=== PATIENT | female | born 1940 ===

== ENCOUNTER 2021-02-10 01:33 | Inpatient (IN) | payer MEDICARE, MEDICAID, SELFPAY ==
[2021-02-10] VITALS (14 sets, daily range): BP systolic 94–139; BP diastolic 48–78; PULSE 75–92; RESP 16–20; TEMP 36–37.2; O2SAT 94–99
[2021-02-10] MEDS: Lactated Ringers 1,000 ML 150 ML IV ×2 (02:16→08:49)
[2021-02-10 03:05] LABS: Source Nasal/Nares
--- NOTE | 2021-02-10 04:15 | NUR.NOTE ---
Nursing Note: At 0035 hrs., Patient arrived in Rm 225, via stretcher by [facility] ambulance staff for direct admit. She is fully awake and pale looking.Presenting problem is heavy vaginal bleeding. She is nauseated , related to motion sickness, Patient received 4 doses of Zofran while on their way. Seen and examined by Produce Department Supervisor MD, internal exam performed and vulva is swollen and with dark blood clots noted. Both grains with large size of bruise. Both upper thigh are edematous +3 and bilateral feet plus 2. Patient verbalized of difficulty of moving legs voluntarily and painful.Admission care rendered. Oriented to call lights system. Bed alarm is on.
--- NOTE | 2021-02-10 07:42 | W.PM.HP.N ---
Date of service: 02/10/21 Time of Service: 07:42 Assessment and Plan Assessment and plan (1) Postmenopausal bleeding: Status: Acute Assessment and plan: Need more thorough exam to better determine the cause of her bleeding. Will consider exam under anesthesia after hospitalist evaluation for stability of other comorbidities. Repeat CBC. History of Present Illness Pt states that she has dealt with hemorrhoids for a while and when she sits on the toilet they get bigger. 2 nights ago she said there were 2 of them that were really big and almost fit in the palm of her hand. She also noticed a little bit of bleeding. Last night she was sitting on the toilet straining to have a BM and she suddenly had a big gush of blood and some clots so EMS was called and she was brought to [facility]. Due to having no executive coordinator there and [facility] and [facility] unable to accept the pt, she was sent here for executive coordinator evaluation. She denies any bleeding prior to the past few days. She is not sexually active. She has not seen a executive coordinator in many years but denies a recent h/o any concerns. She reports having had precancerous cervical cells in 1980 that were treated with normal paps since. She denies any other executive coordinator issues or concerns. Review of Systems Constitutional Constitutional: Denies chills, Denies fever(s) and Reports poor appetite ENT Ears, Nose, Mouth, and Throat: Reports hearing loss Cardiovascular Cardiovascular: Reports dyspnea on exertion Respiratory Respiratory: Reports dyspnea on exertion Gastrointestinal Gastrointestinal: Denies hematochezia, Reports constipation and Reports nausea (Only due to ambulance ride to hospital.) Genitourinary Genitourinary: Reports as per HPI, Denies dysuria and Reports urinary incontinence (wears a depends and uses desitin) Musculoskeletal Musculoskeletal: Reports arthralgias (due to arthritis) [facility] Medical History (Updated 02/10/21 @ 14:43 by Maria Medrano MD) Ambulatory dysfunction Degenerative joint disease involving multiple joints (~08/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) Disorder of uterine cervix (~08/15/17) Hyperlipidemia (~08/15/17) Hypertension (~08/15/17) Non-insulin dependent type 2 diabetes mellitus Obesity (BMI 30-39.9) Positive cardiac stress test Precancerous changes of the cervix UTI (urinary tract infection) (~08/15/17) Surgical History (Updated 02/10/21 @ 14:22 by Maria Medrano MD) H/O cone biopsy of cervix History of cholecystectomy Hx of colonoscopy Tubal ligation status Family History (Updated 02/10/21 @ 14:23 by Maria Medrano MD) Father Heart disease Hypertension Mother Hypertension Maternal Aunt Cancer cervical cancer Social History (Updated 02/10/21 @ 14:25 by Maria Medrano MD) Smoking/Tobacco Use Status: Former Tobacco Use Smoking risk assessment performed?: Yes Alcohol Intake: former Drug use: Never Household members: children Communication Needs: Hard of Hearing Additional Social history: wheelchair bound. Lives with son who is about to move to [place]. The patient was awaiting placement at [facility], but it has closed to admissions History History 1 Para 1 Hx # Term Pregnancies 1 Multiple births Hx # Pregnancies 0 Ectopic pregnancies AB induced Hx Number of Living Children 0 AB spontaneous Past Pregnancies Del. Date GA/Weeks # Outcome Route Wgt Sex Labor Lgth Anesthesia Location Prov Complic Unknown vaginal Male Stillbirth due to toxemia - 1969 Meds Allergies and Home Medications Allergies Allergy/AdvReac Type Severity Reaction Status Date / Time codeine Allergy Dizziness/L Unverified 02/10/21 03:22 ighthead meperidine [From Demerol] Allergy Headache Unverified 02/10/21 03:22 morphine Allergy Dizziness/L Unverified 02/10/21 03:22 ighthead naproxen [From Aleve] Allergy Swelling/Ed Unverified 02/10/21 03:22 juma tetracycline Allergy Unverified 02/10/21 03:22 Home Medications Medication Instructions Recorded Confirmed Type acetaminophen 1,000 mg PO PRN PRN 02/10/21 02/10/21 History aspirin [Ecotrin Low Strength] 81 mg PO DAILY 02/10/21 02/10/21 History atenolol 50 mg DAILY 02/10/21 02/10/21 History calcium citrate-vitamin D3 200 tab DAILY 02/10/21 02/10/21 History [Calcium Citrate + D] cholecalciferol (vitamin D3) 25 mcg PO DAILY 02/10/21 02/10/21 History [Vitamin D3] cranberry extract 1 mg PO DAILY 02/10/21 02/10/21 History diclofenac sodium TOPICAL 02/10/21 History glipizide 5 mg PO BID 02/10/21 02/10/21 History losartan-hydrochlorothiazide 1 tab DAILY 02/10/21 02/10/21 History [Hyzaar] lovastatin 1 mg DAILY 02/10/21 02/10/21 History magnesium chloride [Slow-Mag] 117 mg PO BID 02/10/21 02/10/21 History metformin 1,000 mg BID 02/10/21 02/10/21 History nystatin [Nystop] TOPICAL 02/10/21 History Exam Const General: cooperative and no acute distress HENMT Head: normocephalic and atraumatic Resp Effort & Inspection: normal respiratory effort and able to speak in complete sentences Neuro General: patient awake (though sleepy @1am) Psych Appearance: grossly normal Mental Status: mental status grossly normal Affect: normal affect Attitude: cooperative Thought Process: normal Thought Content: normal Results Labs Result diagrams: 02/10/21 14:10 02/10/21 09:20 Labs: Laboratory Results - last 24 hr 02/10/21 02:40 COVID-19 Source Nasal/Nares Last Vital Signs Temp 98.1 F 02/10/21 07:34 Pulse 88 02/10/21 07:34 Resp 18 02/10/21 07:34 BP 133/70 02/10/21 07:34 Pulse Ox 99 02/10/21 07:34
--- NOTE | 2021-02-10 09:00 | RT.EKG_ITS ---
APPROVED REPORT Exam: Resting ECG Reason for Exam: preop clearance Patient Location: I HR:91 bpm ECG Measurements Heart Rate 91 AXIS OK 158 P 34 QRSd 84 QRS -26 QT 341 T 28 QTc 420 Conclusion Sinus rhythm...normal P axis, V-rate 60- 99 Probable anterior infarct, age indeterminate...Q >35mS, T neg, V2-V5
[2021-02-10 09:32] LABS: Abs Immature Grans 0.22 10^3/uL (0.0-0.06); Absolute Eosinophil Count 0.22 10^3/uL (0.0-0.7); Absolute Neutrophil Count 13.69 10^3/uL (1.2-6.7); Basophils % 0.4; HGB 7.2 g/dL (11.2-15.7); Lymphocytes % 26.1; MCH 30.9 pg (27.0-33.0); MCHC 32.7 % (32.0-36.0); MCV 94.4 fL (80-95); Monocytes % 8.1; Neutrophils % 63.4; Nucleated RBC 0 %; Platelet Count 285 10^3/uL (130-400); RBC 2.33 10^6/uL (3.93-5.22); RDW 13.1 % (11.7-14.6); RDW-SD 43.9 fL
[2021-02-10 09:46] LABS: Hemoglobin A1C 7.8 % (<5.7)
[2021-02-10 10:01] LABS: Absolute Basophil Count 0.09 10^3/uL (0.0-0.2); Absolute Lymphocyte Count 5.64 10^3/uL (1.2-3.4); Absolute Monocyte Count 1.75 10^3/uL (0.1-0.8)
[2021-02-10 10:02] LABS: Diff Comment Diff Reviewed; Polychromasia Present
--- NOTE | 2021-02-10 10:05 | PAPFT_PTH ---
PATIENT: Lakia Rosales LOC: [id number]#:[id number] AGE/SX: 80/F ROOM: RE02/11/[address]: Yu Gama MD : 1940 BED: A DIS: 02/12/2021 SPEC #: [id number] RECD: 02/11/21 12:57 STATUS: TANA REQ #: [id number] EZ: 02/10/21 10:[address]: Yu Gama DEPT: [facility] Cytology RECD BY: Lakia Ruiz ENTERED: 02/11/21 13:00 SP TYPE: PAPFT OTHR DR: Sil Kinney Unknown,Unknown Tissues: 1 - CX/ENDOCX FOR PAP SMEARS Procedures: PAP THIN PREP/UVM Screening Comments: [id number]
--- NOTE | 2021-02-10 10:15 | RT.EKG_ITS ---
APPROVED REPORT Exam: Resting ECG Reason for Exam: assure lead placement Patient Location: I HR:88 bpm ECG Measurements Heart Rate 88 AXIS OK 177 P 28 QRSd 79 QRS -28 QT 196 T 22 QTc 238 Conclusion Sinus rhythm...normal P axis, V-rate 60- 99 Low voltage, precordial leads...precordial leads <1.0mV Consider anterior infarct...Q >30mS in V2-V5
[2021-02-10 10:18] LABS: Iron 46 ug/dL (50-170); Total Iron Binding Capacity 308 ug/dL (250-450); Transferrin Sat 15 % (15-50)
[2021-02-10 10:19] LABS: ALT 27 U/L (14-59); AST 20 U/L (15-37); Albumin 3.1 g/dL (3.4-5.0); Alkaline Phosphatase 40 U/L (46-116); Anion Gap 9.4 mmol/L (3-11); BUN 22 mg/dL (7-18); Bilirubin, Total 0.3 mg/dL (0.2-1.0); CO2 23.6 mmol/L (21.0-32.0); CREATININE 1.2 mg/dL (0.55-1.02); Calcium 8.5 mg/dL (8.5-10.1); Chloride 104 mmol/L (98-107); Estimated GFR 43.12 (mL/min/1.73m2); Ferritin 62 ng/mL (8-252); Glucose 196 mg/dL (74-106); Potassium 3.4 mmol/L (3.5-5.1); Sodium 137 mmol/L (136-145); Total Protein 6.5 g/dL (6.4-8.2)
[2021-02-10 10:28] LABS: Bilirubin, Direct 0.1 mg/dL (0.0-0.2)
[2021-02-10 10:28] LABS: COVID-19 PCR Negative (Negative)
[2021-02-10 10:33] LABS: Folate 13.5 ng/mL (8.6-20.0); Vitamin B12 806 pg/mL (193-986)
[2021-02-10 10:34] LABS: Troponin I < 0.05 ng/mL (<0.06)
--- NOTE | 2021-02-10 10:40 | MCONE_ITS ---
Date of service: 02/10/21 Time of Service: 10:40 Assessment and Plan Assessment and plan (1) Postmenopausal bleeding: Status: Acute Assessment and plan: Agree that the patient would benefit from an exam under anesthesia. However she does have a number of red flags in her history such as h/o myocarditis, positive stress test, Dyspnea on exertion, possible sleep apnea. Given this picture and the fact that the patient is not currently bleeding, I would obtain an echocardiogram. Until then, I am unable to clear the patient for this procedure. (2) Leucocytosis: Status: Acute Assessment and plan: DDx: pelvic process, ?UTI or due to vomiting. Procalcitonin is 0.01, which is not negative. We are awaiting a UA - AUTO MECHANICS TEACHER is planning on trying a straight cath; nursing has not been able to do so. No abx until UA is collected. (3) Anemia due to acute blood loss: Status: Acute Assessment and plan: Tren H/H. Latest Hgb is 6.5 - recommend transfusion with target H/H of 11/28. I am deferring blood transfusion to the primary team, which has been communicated. (4) ESCALANTE (dyspnea on exertion): Status: Acute Assessment and plan: Obtain echo. (5) Non-insulin dependent type 2 diabetes mellitus: Status: Chronic Assessment and plan: Hold oral agents. Provide SSI (6) Hypertension: Status: Chronic Assessment and plan: Continue BB. hold losartan/HCTZ given IV contrast administration (7) Ambulatory dysfunction: Status: Chronic Assessment and plan: Would benefit from PT consult on this admission. History of Present Illness History of Present Illness Chief Complaint: Vaginal bleeding, consult for medical management and preop clearance Narrative: Ms Rosales is an 80 year old female who is a patient on Dr Gama's service (AUTO MECHANICS TEACHER) for vaginal bleeding x 2 days, having initially presented to the [facility] ED and transferred to our facility for further care. Her PMHx includes viral myocarditis (diagnosed in the ), what sounds like a positive cardiac stress test at that time, NIDDM2, hypertension, hyperlipidemia, and osteoarthritis. Of note, her hemoglobin there was 8.5 and her white count was 16. No imaging appears to have been done at [facility]. There is a plan to do an exam under anesthesia today by AUTO MECHANICS TEACHER. Hospitalist consult was requested for help with management of her other medical issues as well as for preop clearance. Today, her WBC is 21.6 and her Hgb is 7.2. The patient states that she has noticed two bumps in the flesh between the vagina and the anus, hanging down for the last several weeks, which have gotten increasingly more sore over the last week. All of inside my vagina was sore. She noticed bleeding when she got up to transfer from the wheelchair to the commode two days ago - she thinks, but is not sure if it started before urination. She initially thought it was hemorrhoids, which she does have a history of. This recurred again the following day and this time she thought it was coming from the vagina. The patient has had difficulty tolerating a pelvic or even external vaginal exam due to pain in her bilateral hips (from her osteoarthritis). Of note, the patient states she once had a cone biopsy of her cervix which was positive for precancerous cells, but has had negative pap smears since. She states she has had several negative colonoscopies. On review of symptoms, the patient states that she gets very short of breath on minimal exertion - just transferring from wheelchair to commode (she is wheelchair bound due to her osteoarthritis for which she would not consider either hip or knee replacements). She does not remember ever getting an echocardiogram and has not gotten a cardiac cath. She has not been in the care of a dust box worker since the . She also thinks she has obstructive sleep apnea, but has not been tested. She denies fevers, chest pain, PND/orthopnea, but has been sleeping in a recliner due to her pain in the bones. Review of Systems Narrative: Additionally, all n/v that the patient has experienced is due to motion sickness, she states. The ambulance ride to the ED as well as her trip downstairs for the CT made her nauseated. 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 (~08/15/17) Hyperlipidemia (~08/15/17) Hypertension (~08/15/17) Non-insulin dependent type 2 diabetes mellitus Obesity (BMI 30-39.9) Positive cardiac stress test Precancerous changes of the cervix UTI (urinary tract infection) (~08/15/17) Surgical History (Updated 02/10/21 @ 14:22 by Maria Medrano MD) H/O cone biopsy of cervix History of cholecystectomy Hx of colonoscopy Tubal ligation status Family History (Updated 02/10/21 @ 14:23 by Maria Medrano MD) Father Heart disease Hypertension Mother Hypertension Maternal Aunt Cancer cervical cancer Social History (Updated 02/10/21 @ 14:25 by Maria Medrano MD) Smoking/Tobacco Use Status: Former Tobacco Use Smoking risk assessment performed?: Yes Alcohol Intake: former Drug use: Never Household members: children Communication Needs: Hard of Hearing Additional Social history: wheelchair bound. Lives with son who is about to move to [place]. The patient was awaiting placement at [facility], but it has closed to admissions History History 1 Para 1 Hx # Term Pregnancies 1 Multiple births Hx # Pregnancies 0 Ectopic pregnancies AB induced Hx Number of Living Children 0 AB spontaneous Past Pregnancies Del. Date GA/Weeks # Outcome Route Wgt Sex Labor Lgth Anesthes ia Location Prov Complic Unknown vaginal Male Stillbirth due to toxemia - 1968 Exam Narrative Exam Narrative: General: Pleasant elderly female who does not appear to be feeling well, pale, A&Ox3, able to provide history Neurological: A&Ox3, mildly hard of hearing, no focal deficits Psychiatric: Appropriate speech pattern/content Skin: external swelling of vulva without obvious erythema. No lesions on B feet. Nursing did see ecchymosis on the sacral area which I was unable to see due to limitations of positioning (pain) during the physical exam HEENT: Atraumatic, normocephalic, EOMI, dry MM, clear oropharynx, no submandibu lar or cervical lypmhadenopathy, no goiter or JVD Cardiovascular: RRR, mildly tachycardic (90s), no m/r/g Lungs: CTAB Gastrointestinal: soft, nontender, nondistended Genitourinary: edemtaous vulva without any obvious erythema/lesions on very limited external exam. Extremities: no edema BLE's, trace pedal pulses B, no lesions Results Last Vital Signs Temp 36.7 C 02/10/21 07:34 Pulse 88 02/10/21 07:34 Resp 18 02/10/21 07:34 BP 133/70 02/10/21 07:34 Pulse Ox 99 02/10/21 07:34 Labs Result diagrams: 02/10/21 09:20 02/10/21 09:20 Labs: Laboratory Results - last 24 hr 02/10/21 02/10/21 02/10/21 02:40 09:20 09:20 WBC 21.60 H RBC 2.33 L Hgb 7.2 L Hct 22.0 L MCV 94.4 MCH 30.9 MCHC 32.7 RDW 13.1 Plt Count 285 MPV 10.0 Immature Gran % 1.0 Neutrophils % 63.4 Lymphocytes % 26.1 Monocytes % 8.1 Eosinophils % 1.0 Basophils % 0.4 Nucleated RBC % 0 Absolute Neutrophils 13.69 H Absolute Lymphocytes 5.64 H Absolute Monocytes 1.75 H Absolute Eosinophils 0.22 Absolute Basophils 0.09 RBC Morphology See Below Polychromasia Present Sodium 137 Potassium 3.4 L Chloride 104 Carbon Dioxide 23.6 Anion Gap 9.4 BUN 22 H Creatinine 1.2 H Estimated GFR/1.73 m2 43.12 Glucose 196 H Hemoglobin A1c Calcium 8.5 Iron TIBC Transferrin % Sat Ferritin 62 Total Bilirubin 0.3 Conjugated Bilirubin 0.1 AST 20 ALT 27 Alkaline Phosphatase 40 L Troponin I Total Protein 6.5 Albumin 3.1 L Vitamin B12 Folate COVID-19 Source Nasal/Nares SARS-CoV-2 (PCR) Negative 02/10/21 02/10/21 02/10/21 09:20 09:20 09:20 WBC RBC Hgb Hct MCV MCH MCHC RDW Plt Count MPV Immature Gran % Neutrophils % Lymphocytes % Monocytes % Eosinophils % Basophils % Nucleated RBC % Absolute Neutrophils Absolute Lymphocytes Absolute Monocytes Absolute Eosinophils Absolute Basophils RBC Morphology Polychromasia Sodium Potassium Chloride Carbon Dioxide Anion Gap BUN Creatinine Estimated GFR/1.73 m2 Glucose Hemoglobin A1c 7.8 H Calcium Iron 46 L TIBC 308 Transferrin % Sat 15 Ferritin Total Bilirubin Conjugated Bilirubin AST ALT Alkaline Phosphatase Troponin I < 0.05 Total Protein Albumin Vitamin B12 806 Folate 13.5 COVID-19 Source SARS-CoV-2 (PCR) Imaging Additional studies: CXR: No acute pulmonary findings. CT abdomen/pelvis: 1. The uterus and other reproductive organs appear grossly unremarkable. If there is continued concern ultrasound should be obtained. 2. No acute abdominal or pelvic process. EKG: HR 88, NSR, no acute ischemia, ?old anterior infarct
[2021-02-10 10:53] LABS: Magnesium 1.9 mg/dL (1.8-2.4); NT-proBNP 160 pg/mL (<300)
--- NOTE | 2021-02-10 10:55 | DI.RAD_ITS ---
Exam(s) XR CHEST 2V PA LATERAL EXAM: XR CHEST 2V PA LATERAL CLINICAL HISTORY: preop clearance TECHNIQUE: 2D digital imaging was performed of the chest. Two images were obtained. PA and lateral views were obtained. COMPARISON: No exams were available for comparison FINDINGS: MEDIASTINUM: Normal. HEART: Normal. PULMONARY VASCULATURE: Normal. LUNGS: Clear. PLEURAL SPACE: No pleural effusion or pneumothorax. BONE:Within normal limits for the patient's age. OTHER FINDINGS:Normal. IMPRESSION: No acute pulmonary findings. DATA REPOSITORY: RADIATION DOSE DELIVERED:
[2021-02-10] MEDS: Normal Saline Flush 10 ML SYR IVP ×3 (11:09→23:02)
[2021-02-10] MEDS: Ondansetron 4 MG/2 ML VIAL IVP (11:09)
[2021-02-10 11:16] LABS: Procalcitonin 0.1 ng/mL
[2021-02-10] MEDS: Pantoprazole 40 MG VIAL IVP (11:37)
--- NOTE | 2021-02-10 11:43 | DI.VRAD_ITS ---
PROCEDURE INFORMATION: Exam: XR Chest Exam date and time: 02/10/2021 10:52 AM Age: 80 years old Clinical indication: Other: Pre-op clearing TECHNIQUE: Imaging protocol: XR of the chest. Views: 2 views. COMPARISON: No relevant prior studies available. FINDINGS: Scan quality: Exam is technically satisfactory. Lungs: Lungs are clear with no infiltrate or nodule. Pleural spaces: Unremarkable. No pleural effusion. No pneumothorax. Heart/Mediastinum: Cardiomediastinal silhouette is normal. Vasculature: Pulmonary vessels are non-engorged. Bones/joints: Unremarkable. IMPRESSION: No active cardiopulmonary disease. Dictated and Authenticated by: Harry Harp MD. Ordering:GENTRY Sifuentes MD
[2021-02-10] MEDS: Omnipaque 350 MG/ML 100 ML BTL IV (11:58)
[2021-02-10] MEDS: Normal Saline - Diluent 50 ML VIAL IV (11:59)
--- NOTE | 2021-02-10 12:05 | DI.CT_ITS ---
Exam(s) CT ABDOMEN PELVIS W EXAM: CT ABDOMEN PELVIS W CLINICAL HISTORY: vaginal bleeding, concern for uterine abscess/mass TECHNIQUE: Imaging Protocol: Axial computed tomography images with coronal and sagittal reformatted images were created and reviewed CONTRAST MATERIAL: Intravenous: Omnipaque 350 Contrast volume:100 mL Oral: No COMPARISON: No exams were available for comparison FINDINGS: ABDOMEN: Lung Bases: Fatty infiltration of the liver. Small hiatal hernia. Liver: Normal density. No measurable mass. Portal, Superior Mesenteric, and Splenic Veins: Unremarkable. Gallbladder and Biliary Tract: Status post cholecystectomy. No biliary ductal dilatation. Pancreas: Normal density, no abnormal calcifications or inflammatory process. Spleen: Normal. Adrenals: No masses seen. Kidneys: Normal size, contour and axis. Bilateral nephrolithiasis. No hydronephrosis. No masses see n. Abdominal Aorta: Abdominal portion non-dilated. Atherosclerosis. Bowel: No obstruction or bowel wall thickening. No evidence of appendicitis. Diverticulosis seen in the sigmoid colon, but no evidence of acute diverticulitis. Peritoneal Cavity: No ascites, collection or mesenteric inflammatory response. No free air. Lymph Nodes: Within normal limits. Bones: Within normal limits for the patient's age. Soft Tissues: Unremarkable. PELVIS: Bladder: Symmetric distention, no gross wall thickening. Reproductive Organs: Unremarkable as visualized. The uterus is unremarkable. Lymph Nodes: Within normal limits. Bones: Within normal limits for the patient's age. IMPRESSION: 1. The uterus and other reproductive organs appear grossly unremarkable. If there is continued eileen rn ultrasound should be obtained. 2. No acute abdominal or pelvic process. RADIATION DOSE DELIVERED: 1,318.7mGy.cm Total DLP DATA REPOSITORY: All CT scans at this facility are submitted to the National Radiology Data Registry (NRDR) Dose Index Registry (DIR) with the [employer] (ACR). RADIATION OPTIMIZATION: All CT scans at this facility use at least one of these dose optimization te chniques: automated exposure control; mA and/or kV adjustment per patient size (includes targeted exa ms where dose is matched to clinical indication); or iterative reconstruction.
[2021-02-10] MEDS: Insulin Aspart 300 UNITS/3 ML PEN SC ×2 (12:17→21:27)
[2021-02-10] MEDS: IRON SUCROSE COMPLEX 200 MG in Normal Saline 100 ML 400 MG IVPB (12:17)
--- NOTE | 2021-02-10 12:17 | DI.VRAD_ITS ---
PROCEDURE INFORMATION: Exam: CT Abdomen And Pelvis With Contrast Exam date and time: 02/10/2021 10:53 AM Age: 80 years old Clinical indication: Other: Vaginal bleeding, concern for uterine abscess/mass; Prior surgery; Surgery date: 6+ months; Surgery type: Tubal, cholecystectomy TECHNIQUE: Imaging protocol: Computed tomography of the abdomen and pelvis with contrast. Contrast material: OMNIPAQUE 350; Contrast volume: 100 ml; Contrast route: INTRAVENOUS (IV); COMPARISON: CR XR CHEST 2V PA LATERAL 07/18/2020 10:58 FINDINGS: Lungs: Visualized lung bases are clear. Liver: Mild fatty infiltration is present throughout the liver. There is no mass or ductal dilatation. Gallbladder and bile ducts: Gallbladder is absent. Pancreas: Normal. No mass or ductal dilation. Spleen: Normal. No splenomegaly. Adrenal glands: Normal. No mass. Kidneys and ureters: Normal. No hydronephrosis, calculus, cyst or mass. Stomach and bowel: Unremarkable. No significant dilatation or obstruction. No mucosal thickening or visible mass. Appendix: No evidence of appendicitis. Intraperitoneal space: Unremarkable. No free air. No significant fluid collection. Vasculature: Unremarkable. No abdominal aortic aneurysm . Moderate aortic atherosclerosis. Lymph nodes: No enlarged retroperitoneal or mesenteric lymph nodes. Urinary bladder: No mass or wall thickening. Reproductive: Uterus is normally and flexed and shows no evidence of mass. There are no surrounding inflammatory changes. There is no adnexal cyst or mass. No free pelvic fluid is present. Bones/joints: Unremarkable. No acute fracture. No lytic lesion. Soft tissues: Unremarkable. IMPRESSION: No acute abnomality in the abdomen or pelvis. Mild hepatic steatosis noted. Uterus appears grossly normal but can probably be better imaged by ultrasound. Dictated and Authenticated by: Harry Harp MD. Ordering:GENTRY Sifuentes MD
[2021-02-10] MEDS: POTASSIUM CHLORIDE 20 MEQ/100 ML BAG 50 MEQ IVPB ×2 (13:05→15:07)
[2021-02-10 14:22] LABS: HCT 19.9 % (36.0-46.0); HGB 6.5 g/dL (11.2-15.7)
[2021-02-10 16:36] LABS: Bilirubin Negative (Negative); Blood Negative (Negative); Clarity Clear (Clear); Glucose Negative (Negative); Ketones Trace mg/dL (Negative); Leukocyte Esterase Trace (Negative); Nitrite Positive (Negative); Urobilinogen 0.2 EU/dL (Up TO 0.2); pH 5.5 (5-8)
--- NOTE | 2021-02-10 16:41 | W.PM.PROGNOT ---
Date of Service Date of service: 02/10/21 Time of Service: 16:41 Assessment and Plan Assessment and plan (1) Postmenopausal bleeding: Status: Acute Assessment and plan: Still uncertain as to the origin of her bleeding due to inability to do adequate pelvic exam. There is definitely a concern for vaginal or cervical cancer though nothing obvious seen on CT scan. Bleeding has not been significant since her arrival here early this am. (2) Anemia: Status: Chronic Assessment and plan: Uncertain as to origin. No significant bleeding while here. Some may be hemodilutional. D/w hospitalist and will transfuse 1U for now and continue to monitor. (3) Labial swelling: Status: Acute Assessment and plan: May be due to pressure from her home commode (she says the opening is smaller) or possibly lymphedema. Monitor skin for ulcer formation. Subjective Subjective Interval history since last seen: Pt has no new concerns. Very minimal bleeding. Difficulty getting out of bed but has used bedside commode with assistance this am and again during exam. Nursing unable to place urinary catheter for UA. Plan to hold off on exam under anesthesia s/p hospitalist consult and concern for underlying cardiac issues. Exam Const General: cooperative and no acute distress HENMT Head: normocephalic and atraumatic Resp Effort & Inspection: normal respiratory effort and able to speak in complete sentences GI Inspection: normal to inspection and obesity Palpation: no masses Rectal Exam - female: hemorrhoids (several external hemorrhoids with no e/o erythema or trauma) External Female Exam: externally tender and external swelling (of lower labia into the perineum with minimal skin sloughing) Other: Very difficult to examine due to pt's hip pain due to arthritis as well as general external genital discomfort. Exam done initially while pt was sitting on the commode. Blind pap smear collected. A 1-finger digital exam revealed some firm masses in the vagina but posteriorly it may be hard stool. Then examined in the bed and was able to place a catheter. No obvious blood noted on exam today. Neuro General: patient alert and patient awake Psych Appearance: grossly normal Mental Status: mental status grossly normal Affect: normal affect Attitude: cooperative Thought Process: normal Thought Content: normal Objective Last Vital Signs Temp 98.1 F 02/10/21 07:34 Pulse 88 02/10/21 07:34 Resp 18 02/10/21 07:34 BP 133/70 02/10/21 07:34 Pulse Ox 99 02/10/21 07:34 Laboratory Results - last 24 hr 02/10/21 02/10/21 02/10/21 02:40 09:20 09:20 WBC 21.60 H RBC 2.33 L Hgb 7.2 L Hct 22.0 L MCV 94.4 MCH 30.9 MCHC 32.7 RDW 13.1 Plt Count 285 MPV 10.0 Immature Gran % 1.0 Neutrophils % 63.4 Lymphocytes % 26.1 Monocytes % 8.1 Eosinophils % 1.0 Basophils % 0.4 Nucleated RBC % 0 Absolute Neutrophils 13.69 H Absolute Lymphocytes 5.64 H Absolute Monocytes 1.75 H Absolute Eosinophils 0.22 Absolute Basophils 0.09 RBC Morphology See Below Polychromasia Present Sodium 137 Potassium 3.4 L Chloride 104 Carbon Dioxide 23.6 Anion Gap 9.4 BUN 22 H Creatinine 1.2 H Estimated GFR/1.73 m2 43.12 Glucose 196 H Hemoglobin A1c Calcium 8.5 Magnesium Iron TIBC Transferrin % Sat Ferritin 62 Total Bilirubin 0.3 Conjugated Bilirubin 0.1 AST 20 ALT 27 Alkaline Phosphatase 40 L Troponin I NT-Pro-B Natriuret Pep Total Protein 6.5 Albumin 3.1 L Vitamin B12 Folate Procalcitonin Urine Color Urine Clarity Urine pH Ur Specific [place] Urine Protein Urine Ketones Urine Blood Urine Nitrite Urine Bilirubin Urine Urobilinogen Ur Leukocyte Esterase Urine Glucose COVID-19 Source Nasal/Nares SARS-CoV-2 (PCR) Negative Crossmatch 02/10/21 02/10/21 02/10/21 09:20 09:20 09:20 WBC RBC Hgb Hct MCV MCH MCHC RDW Plt Count MPV Immature Gran % Neutrophils % Lymphocytes % Monocytes % Eosinophils % Basophils % Nucleated RBC % Absolute Neutrophils Absolute Lymphocytes Absolute Monocytes Absolute Eosinophils Absolute Basophils RBC Morphology Polychromasia Sodium Potassium Chloride Carbon Dioxide Anion Gap BUN Creatinine Estimated GFR/1.73 m2 Glucose Hemoglobin A1c 7.8 H Calcium Magnesium 1.9 Iron 46 L TIBC 308 Transferrin % Sat 15 Ferritin Total Bilirubin Conjugated Bilirubin AST ALT Alkaline Phosphatase Troponin I < 0.05 NT-Pro-B Natriuret Pep 160 Total Protein Albumin Vitamin B12 806 Folate 13.5 Procalcitonin Urine Color Urine Clarity Urine pH Ur Specific [place] Urine Protein Urine Ketones Urine Blood Urine Nitrite Urine Bilirubin Urine Urobilinogen Ur Leukocyte Esterase Urine Glucose COVID-19 Source SARS-CoV-2 (PCR) Crossmatch 02/10/21 02/10/21 02/10/21 09:20 14:10 16:00 WBC RBC Hgb 6.5 L* Hct 19.9 L* MCV MCH MCHC RDW Plt Count MPV Immature Gran % Neutrophils % Lymphocytes % Monocytes % Eosinophils % Basophils % Nucleated RBC % Absolute Neutrophils Absolute Lymphocytes Absolute Monocytes Absolute Eosinophils Absolute Basophils RBC Morphology Polychromasia Sodium Potassium Chloride Carbon Dioxide Anion Gap BUN Creatinine Estimated GFR/1.73 m2 Glucose Hemoglobin A1c Calcium Magnesium Iron TIBC Transferrin % Sat Ferritin Total Bilirubin Conjugated Bilirubin AST ALT Alkaline Phosphatase Troponin I NT-Pro-B Natriuret Pep Total Protein Albumin Vitamin B12 Folate Procalcitonin 0.1 Urine Color Yellow Urine Clarity Clear Urine pH 5.5 Ur Specific [place] 1.020 Urine Protein Negative Urine Ketones Trace H Urine Blood Negative Urine Nitrite Positive H Urine Bilirubin Negative Urine Urobilinogen 0.2 Ur Leukocyte Esterase Trace H Urine Glucose Negative COVID-19 Source SARS-CoV-2 (PCR) Crossmatch 02/10/21 16:03 WBC RBC Hgb Hct MCV MCH MCHC RDW Plt Count MPV Immature Gran % Neutrophils % Lymphocytes % Monocytes % Eosinophils % Basophils % Nucleated RBC % Absolute Neutrophils Absolute Lymphocytes Absolute Monocytes Absolute Eosinophils Absolute Basophils RBC Morphology Polychromasia Sodium Potassium Chloride Carbon Dioxide Anion Gap BUN Creatinine Estimated GFR/1.73 m2 Glucose Hemoglobin A1c Calcium Magnesium Iron TIBC Transferrin % Sat Ferritin Total Bilirubin Conjugated Bilirubin AST ALT Alkaline Phosphatase Troponin I NT-Pro-B Natriuret Pep Total Protein Albumin Vitamin B12 Folate Procalcitonin Urine Color Urine Clarity Urine pH Ur Specific [place] Urine Protein Urine Ketones Urine Blood Urine Nitrite Urine Bilirubin Urine Urobilinogen Ur Leukocyte Esterase Urine Glucose COVID-19 Source SARS-CoV-2 (PCR) Crossmatch See Detail
[2021-02-10 16:43] LABS: Bacteria Packed HPF (Negative); C & S Indicated? Yes; Crystals Negative HPF (Negative); Epithelial Cells Few HPF (Negative); Mucus Negative (Negative); RBC Negative HPF (0-2)
[2021-02-10] MEDS: Lactated Ringers 1,000 ML 75 ML IV (17:39)
[2021-02-10] MEDS: Acetaminophen 325 MG TAB 650 MG PO (17:45)
[2021-02-10] MEDS: diphenhydrAMINE 25 MG CAP PO (17:45)
[2021-02-10] MEDS: cefTRIAXone 1 GM/50 ML BAG IVPB (17:45)
[2021-02-10] MEDS: Magnesium Chloride 64 MG TABCR PO (20:48)
[2021-02-11] VITALS (10 sets, daily range): BP systolic 104–145; BP diastolic 51–72; PULSE 64–95; RESP 16–20; TEMP 36.4–37.1; O2SAT 92–98
--- NOTE | 2021-02-11 | DI.US_ITS ---
Exam(s) US TRANSVAGINAL EXAM: US TRANSVAGINAL CLINICAL HISTORY: CT of pelvis did not clearly ID ES.. TECHNIQUE: Transvaginal imaging was performed using standard protocol. COMPARISON: CT CT ABDOMEN PELVIS W from 02/10/[address] ABDOMEN PELVIS W from 02/10/2021 FINDINGS: KIDNEYS: Kidneys are symmetric in size. No evidence of renal calculi. No evidence of hydronephrosis. No renal mass or cyst identified. UTERUS: Position: Anteverted. 7.6 x 3.1 x 3 point 8 cm. Endometrium: 1 millimeter no fluid within the endometrial canal.. Normal for patient's menstrual sta tus. Myometrium: Unremarkable. Cervix: Small nabothian cysts. OVARIES: Right: Not visualized Cyst or mass: None. Left: Not visualized Cyst or mass: None. :CUL-DE-SAC: Free fluid: None. IMPRESSION: 1. Normal sonographic appearance of the kidneys. 2. Normal-appearing uterus with endometrial stripe within normal limits. 3. The ovaries were unable to be visualized. The appeared normal in size and show no evidence of cys t or mass by recent CT. DATA REPOSITORY:
[2021-02-11] MEDS: Lactated Ringers 1,000 ML 75 ML IV (06:10)
[2021-02-11 06:56] LABS: Abs Immature Grans 0.19 10^3/uL (0.0-0.06); Absolute Monocyte Count 1.16 10^3/uL (0.1-0.8); Absolute Neutrophil Count 8.92 10^3/uL (1.2-6.7); Basophils % 0.4; Eosinophils % 1.9; HCT 23.2 % (36.0-46.0); HGB 7.4 g/dL (11.2-15.7); Immature Grans % 1.4; Lymphocytes % 23.5; MCH 29.8 pg (27.0-33.0); MCHC 31.9 % (32.0-36.0); MCV 93.5 fL (80-95); Monocytes % 8.4; Neutrophils % 64.4; Nucleated RBC 1 %; Platelet Count 214 10^3/uL (130-400); RBC 2.48 10^6/uL (3.93-5.22); RDW 14.5 % (11.7-14.6); RDW-SD 47.9 fL; WBC 13.85 10^3/uL (4.4-10.8)
[2021-02-11 07:02] LABS: Absolute Basophil Count 0.06 10^3/uL (0.0-0.2); Absolute Eosinophil Count 0.26 10^3/uL (0.0-0.7); Absolute Lymphocyte Count 3.25 10^3/uL (1.2-3.4); Anion Gap 6.3 mmol/L (3-11); BUN 10 mg/dL (7-18); CO2 28.7 mmol/L (21.0-32.0); CREATININE 0.9 mg/dL (0.55-1.02); Calcium 8.2 mg/dL (8.5-10.1); Chloride 107 mmol/L (98-107); Glucose 100 mg/dL (74-106); Magnesium 1.8 mg/dL (1.8-2.4); Potassium 3.6 mmol/L (3.5-5.1); Sodium 142 mmol/L (136-145)
[2021-02-11] MEDS: Insulin Aspart 300 UNITS/3 ML PEN SC ×4 (08:51→21:40)
[2021-02-11] MEDS: Atenolol 50 MG TAB PO (08:51)
[2021-02-11] MEDS: Magnesium Chloride 64 MG TABCR PO ×2 (08:51→20:01)
[2021-02-11] MEDS: Acetaminophen 325 MG TAB 650 MG PO ×2 (10:36→17:21)
[2021-02-11] MEDS: diphenhydrAMINE 25 MG CAP PO (10:37)
--- NOTE | 2021-02-11 12:16 | PGE_ITS ---
Date of Service Date of service: 02/11/21 Time of Service: 12:17 Assessment and Plan Assessment and plan (1) Postmenopausal bleeding: Status: Acute Assessment and plan: Still unclear where is source of bleeding. Pelvic u/s to be performed today. I will hopefully be able to be there during exam so I can see pt's genitalia. Anesthesia has been consulted re; feasibility of performing exam under anesthesia at [facility]. (2) Labial swelling: Status: Acute (3) Anemia: Status: Chronic Assessment and plan: 2nd unit PRBC transfused this am. Subjective Subjective Patient reports: tolerating a regular diet, no bowel movement and shortness of breath (I've always had to rest during activity) Interval history since last seen: HD 2 for an 80yo postmenopausal female admitted to [facility]iologic Techn[facility] Mammogram Service with Hospitalist Service kindly consulting after an episode of unknown genital bleeding of an unknow site and anemia. Admission Radiologic Technologist Mammogram exam was limited 2/2 pt's mobility. No active bleeding from the vagina noted at time of limited bimanual exam. CT of abd/pelvis inconclusive for etiology. While here pt's DM has been managed and s/p echocardiogram this am. Final report is currently not available. Exam Const General: no acute distress Nutritional Appearance: obese Orientation: alert, awake and oriented x3 Resp Effort & Inspection: normal respiratory effort GI Inspection: obesity Palpation: firm, no guarding, no masses and not rigid Other: Unable to position pt in bed to access vulva. She is unable to lower her head. No inspection of external genitalia performed. Skin General skin exam: dry skin (bilateral LE), turgor decreased and other (No exam of vulva performed. ) Psych Appearance: grossly normal Mental Status: mental status grossly normal Speech and Movement: speech and movement normal Mood: congruent mood Affect: dysphoric affect Attitude: cooperative Thought Process: normal Thought Content: normal Insight: insight good Judgment: judgment good Objective Last Vital Signs Temp 97.5 F L 02/11/21 11:57 Pulse 72 02/11/21 11:57 Resp 16 02/11/21 11:57 BP 119/51 L 02/11/21 11:57 Pulse Ox 94 02/11/21 11:57 Laboratory Results - last 24 hr 02/10/21 02/10/21 02/10/21 14:10 16:00 17:30 WBC RBC Hgb 6.5 L* Hct 19.9 L* MCV MCH MCHC RDW Plt Count MPV Immature Gran % Neutrophils % Lymphocytes % Monocytes % Eosinophils % Basophils % Nucleated RBC % Absolute Neutrophils Absolute Lymphocytes Absolute Monocytes Absolute Eosinophils Absolute Basophils Sodium Potassium Chloride Carbon Dioxide Anion Gap BUN Creatinine Estimated GFR/1.73 m2 Glucose Calcium Magnesium Urine Color Yellow Urine Clarity Clear Urine pH 5.5 Ur Specific [place] 1.020 Urine Protein Negative Urine Ketones Trace H Urine Blood Negative Urine Nitrite Positive H Urine Bilirubin Negative Urine Urobilinogen 0.2 Ur Leukocyte Esterase Trace H Urine RBC Negative Urine WBC 10-20 H Ur Epithelial Cells Few Urine Crystals Negative Urine Bacteria Packed Urine Mucus Negative Ur Culture Indicated? Yes Urine Glucose Negative Patient ABO/Rh A Negative Antibody Screen NEGATIVE Crossmatch See Detail 02/11/21 02/11/21 06:12 06:12 WBC 13.85 H D RBC 2.48 L Hgb 7.4 L Hct 23.2 L MCV 93.5 MCH 29.8 MCHC 31.9 L RDW 14.5 Plt Count 214 MPV 10.0 Immature Gran % 1.4 Neutrophils % 64.4 Lymphocytes % 23.5 Monocytes % 8.4 Eosinophils % 1.9 Basophils % 0.4 Nucleated RBC % 1 Absolute Neutrophils 8.92 H Absolute Lymphocytes 3.25 Absolute Monocytes 1.16 H Absolute Eosinophils 0.26 Absolute Basophils 0.06 Sodium 142 Potassium 3.6 Chloride 107 Carbon Dioxide 28.7 Anion Gap 6.3 BUN 10 D Creatinine 0.9 Estimated GFR/1.73 m2 >= 60.00 Glucose 100 D Calcium 8.2 L Magnesium 1.8 Urine Color Urine Clarity Urine pH Ur Specific [place] Urine Protein Urine Ketones Urine Blood Urine Nitrite Urine Bilirubin Urine Urobilinogen Ur Leukocyte Esterase Urine RBC Urine WBC Ur Epithelial Cells Urine Crystals Urine Bacteria Urine Mucus Ur Culture Indicated? Urine Glucose Patient ABO/Rh Antibody Screen Crossmatch
[2021-02-11] MEDS: Pantoprazole 40 MG VIAL IVP (13:21)
[2021-02-11] MEDS: Normal Saline Flush 10 ML SYR IVP ×2 (13:22→20:02)
--- NOTE | 2021-02-11 13:25 | PT.INIE ---
PT Notes Visit Reasons: Postmenopausal Bleeding Inpatient Physical Therapy Evaluation Date: 02/11/21 Referring Doctor: Dr. Medrano PT Orders: PT CONSULT: limited ability to ambulate Precautions: fall, standard Patient Profile/Admitting Diagnosis: Patient admitted 02/10/21 due to post-menopausal bleeding and anemia. PT consult requested for evaluation of limitations in mobility. PMHX: Ambulatory dysfunction Degenerative joint disease involving multiple joints (~08/15/17) Disorder of uterine cervix (~08/15/17) Hyperlipidemia (~08/15/17) Hypertension (~08/15/17) Non-insulin dependent type 2 diabetes mellitus Obesity (BMI 30-39.9) Positive cardiac stress test Precancerous changes of the cervix UTI (urinary tract infection) (~08/15/17) Surgical History (Updated 02/10/21 @ 14:22 by Maria Medrano MD) H/O cone biopsy of cervix History of cholecystectomy Hx of colonoscopy Tubal ligation status Social History/Home Situation: Patient reports that she is home bound. She lives with her son and receives nursing services at home. Her son is her primary caregiver, and assists her with all transfers. She spends most of her time in the recliner, where she also sleeps. She has a wheelchair and a FWW, but states that her son has to put his arms around her and lift her out of the chair to transfer. She states that she planned to transition to [facility], but lost her placement at the last minute, as they could not accept any additional patients. Current Functional Limitations: reports that she has been up to the commode with assist of 2 nurses Equipment Owned/DME: wheelchair, FWW Subjective: Lakia states that she is not able to get up out of bed. She states that she has been unable to walk for a long time, and reports a bad history with PT and attempts to try to get her to walk independently. She reports chronic pain in her LEs after a fall many years ago while helping her own mother transfer. She is agreeable to PT consultation, provided she does not have to transfer. Objective: General Observation: Resting in bed with bilat LEs in abducted position, supported with pillows. Patient is receiving blood transfusion via RUE IV, and has a Dey catheter in place. Mental Status: A&Ox3. Pain: bilat LE pain (chronic) ROM: Right Upper Extremity: Shoulder flexion to 80 degrees. Elbow and wrist motion grossly WFL. Left Upper Extremity: Shoulder flexion to 80 degrees. Elbow and wrist motion grossly WFL. Right Lower Extremity: Hip flexion to 60 degrees actively, limited by pain. She is resting in bed with head elevated, and I am unable to observe neutral hip extension. She actively demonstrates knee motion 0-45 degrees. Left Lower Extremity: Hip flexion to 70 degrees actively, limited by pain. She is resting in bed with head elevated, and I am unable to observe neutral hip extension. She actively demonstrates knee motion 0-60 degrees. Strength: Right Upper Extremity: Shoulder flexion 3-/5. Biceps 3+/5. Triceps 4/5. Left Upper Extremity: Shoulder flexion 3-/5. Biceps 4-/5. Triceps 4+/5. Right Lower Extremity: Hip flexion 3-/5. Quads 3-/5 (unable to perform SLR, although tolerates SAQ); hamstrings allow heel slides within limited range Left Lower Extremity: Hip flexion 3-/5. Quads 3-/5 (unable to perform SLR, although tolerates SAQ); hamstrings allow heel slides within limited range Sensation: diminished to light touch through the plantar aspect of bilat feet Bed Mobility/Transfers: refuses at time of consult. Gait: unable Balance: Static Sitting: unable Dynamic Sitting: unable Static Standing: unable Dynamic Standing: unable Special Tests: Mobility Limitations Standardized Measure [facility] 6 clicks Basic Mobility Inpatient Short Form: Raw Score: 10 CMS Score: 77% impairment Informed Consent/Education: Patient instructed in purpose of PT consult and plan of care. Assessment: Patient is a 80 year old female referred to physical therapy services with the diagnosis of limited ability to ambulate during acute care stay for postmenopausal bleeding and anemia. Patient presents with clinical signs and symptoms consistent with acute on chronic mobility deficits. Per patient's report, she is nonambulatory at baseline, and requires significant assistance for all transfers. She was initially disagreeable to PT consultation, however after discussion of agreeable goalsetting, she is willing participate. She requires skilled PT intervention in acute care setting to maximize safety and mobility, particularly to achieve safe transfers by a stand pivot. Anticipate need for long-term care placement, given her baseline mobility limitations and poor AM-PAC scores on evaluation today. She currently demonstrates the following impairment level findings: 1. Decreased lower extremity strength 2. Decreased lower extremity range of motion 3. Baseline mobility deficits 4. Poor AMPAC score (77% impairment) Impairments are contributing to the following functional limitations: 1. Unable to independently transfer 2. Unable to ambulate 3. Unable to perform bed mobility without assistance Patient is assessed as Moderate [id number] complexity based on the following: History: She is an 80-year-old female admitted for medical management of postmenopausal bleeding with anemia. She has baseline mobility impairments, accentuated by her acute medical issues. Complicating factors include history of limited tolerance to PT intervention and multiple medical comorbidities as listed above. Examination: Functional imitations as noted above Presentation: Evolving Decision Making: Moderate complexity Goals: Goals X1 week 1. Supine-Sit : Mod assist of 1 2. Sit-Supine: Mod assist of 1 3. Sit-Stand : Mod assist of 1 4. Stand-Sit : Mod assist of 1 5. Bed-Chair : Mod assist of 1 6. Chair-Bed: Mod assist of 1 [] Plan of Care/Treatment Plan: 1-2x/day, 7 days/week x 1 week. Plan of care has been reviewed with the SENIOR UI WEB DEVELOPER providing the service under Physical Therapy direction. Initiate Physical Therapy intervention for strengthening, bed mobility, transfers, gait, stairs, balance training, use of assistive device. DISCHARGE RECOMMENDATIONS: Recommend long-term care placement TREATMENT CODE/TIME: 1:00?130 ([id number]) Tiffanie Gill, PT, DPT [facility]
--- NOTE | 2021-02-11 14:58 | PGE_ITS ---
Date of Service Date of service: 02/11/21 Time of Service: 16:39 Assessment and Plan Assessment and plan (1) Labial swelling: Status: Acute Assessment and plan: Appearance of ecchymosis changing throughout the day. Initially the labia were enlarged, ecchymotic, taut. Throughout the day there has been a spread of ecchymosis in a dependent fashion into her buttocks. However not assoc with edema. No u/s findings worrisome for uterine origin of bleeding. Most likely cause is aberrant blood vessel rupture into perineal tissue Will continue to follow daily exam of perineum and lower back. Leave rooney in place until labial edema has improved. (2) Anemia: Status: Chronic Assessment and plan: Pt s/p 2nd unit PRBC today. Will repeat CBC in am to assess if blood loss has stabilized. Qualifiers: Anemia type: unspecified type Qualified Code(s): D64.9 - Anemia, unspecified (3) ESCALANTE (dyspnea on exertion): Status: Acute Assessment and plan: await echocardiogram report. (4) Ambulatory dysfunction: Status: Chronic Assessment and plan: I will order PT assessment of ability to transfer to commode. Pt has longstanding hx of osteoarthritis and is constantly in pain when resting on her side or ambulating. Subjective Subjective Patient reports: no bowel movement Interval history since last seen: Since this am she has undergone a TV u/s with finding of 1mm ES w/o free fluid or adnexal masses. Exam Narrative Exam Narrative: Patient while he was examined in the lithotomy position while in ultrasound for transvaginal pelvic ultrasound. Pulmonary examination of the endometrial shows approximately 1 mm of endometrial thickness no evidence of free fluid. Normal adnexa. External Female Exam: externally tender, external swelling (bilateral labia majora taut with cracked skin and superficial excoriations.) and ecchymosis Bimanual Exam- Vagina & Uterus: normal palpation (digital exam at time of pelvic u/s) OB/External & Speculum: vulvar tenderness Other: both labia majora swollen and ecchymotic. Ecchymosis extends beyond crural folds an towards buttocks. Area is not taut. Superficial excoriations on both tuberosities treated with zinc paste and protective dressing. Back/Spine/Pelvis Back: ecchymosis Skin General skin exam: ecchymosis and excoriation Extrem General: no clubbing, cyanosis or edema Psych Appearance: disheveled Mental Status: mental status grossly normal Speech and Movement: speech clear and slowed movement Mood: dysthymic mood Affect: normal affect Attitude: cooperative Thought Process: normal Thought Content: normal Insight: insight good Judgment: judgment good Objective Last Vital Signs Temp 97.5 F L 02/11/21 13:19 Pulse 70 02/11/21 13:19 Resp 16 02/11/21 13:19 BP 113/67 02/11/21 13:19 Pulse Ox 98 02/11/21 13:19 Laboratory Results - last 24 hr 02/10/21 02/10/21 02/11/21 16:00 17:30 06:12 WBC RBC Hgb Hct MCV MCH MCHC RDW Plt Count MPV Immature Gran % Neutrophils % Lymphocytes % Monocytes % Eosinophils % Basophils % Nucleated RBC % Absolute Neutrophils Absolute Lymphocytes Absolute Monocytes Absolute Eosinophils Absolute Basophils Sodium 142 Potassium 3.6 Chloride 107 Carbon Dioxide 28.7 Anion Gap 6.3 BUN 10 D Creatinine 0.9 Estimated GFR/1.73 m2 >= 60.00 Glucose 100 D Calcium 8.2 L Magnesium 1.8 Urine Color Yellow Urine Clarity Clear Urine pH 5.5 Ur Specific [place] 1.020 Urine Protein Negative Urine Ketones Trace H Urine Blood Negative Urine Nitrite Positive H Urine Bilirubin Negative Urine Urobilinogen 0.2 Ur Leukocyte Esterase Trace H Urine RBC Negative Urine WBC 10-20 H Ur Epithelial Cells Few Urine Crystals Negative Urine Bacteria Packed Urine Mucus Negative Ur Culture Indicated? Yes Urine Glucose Negative Patient ABO/Rh A Negative Antibody Screen NEGATIVE Crossmatch See Detail 02/11/21 06:12 WBC 13.85 H D RBC 2.48 L Hgb 7.4 L Hct 23.2 L MCV 93.5 MCH 29.8 MCHC 31.9 L RDW 14.5 Plt Count 214 MPV 10.0 Immature Gran % 1.4 Neutrophils % 64.4 Lymphocytes % 23.5 Monocytes % 8.4 Eosinophils % 1.9 Basophils % 0.4 Nucleated RBC % 1 Absolute Neutrophils 8.92 H Absolute Lymphocytes 3.25 Absolute Monocytes 1.16 H Absolute Eosinophils 0.26 Absolute Basophils 0.06 Sodium Potassium Chloride Carbon Dioxide Anion Gap BUN Creatinine Estimated GFR/1.73 m2 Glucose Calcium Magnesium Urine Color Urine Clarity Urine pH Ur Specific [place] Urine Protein Urine Ketones Urine Blood Urine Nitrite Urine Bilirubin Urine Urobilinogen Ur Leukocyte Esterase Urine RBC Urine WBC Ur Epithelial Cells Urine Crystals Urine Bacteria Urine Mucus Ur Culture Indicated? Urine Glucose Patient ABO/Rh Antibody Screen Crossmatch
--- NOTE | 2021-02-11 15:38 | PGE_ITS ---
Date of Service Date of service: 02/11/21 Time of Service: 15:39 Assessment and Plan Assessment and plan (1) Postmenopausal bleeding: Status: Acute Assessment and plan: The patient states she was examined by RELATIONS MANAGER today. It does not appear that she required anesthesia for this. US and exam do not appear to have revealed any major abnormalities. Will obtain urine cytology, though I do see that UA was negative for blood. Pap smear done by RELATIONS MANAGER is pending. Other possibility is hemorrhoids and vaginal varices (these were not described in the exam by RELATIONS MANAGER today). (2) Leucocytosis: Status: Acute Assessment and plan: DDx: pelvic process, ?UTI or due to vomiting. Procalcitonin is 0.01, which is not negative. WBC is better. Unclear if ceftriaxone is the reason why. Urine C&S is pending. Would consider d/c of ceftriaxone after 3rd dose. (3) Anemia due to acute blood loss: Status: Acute Assessment and plan: S/p 2 units pRBCs. Repeat H/H. (4) ESCALANTE (dyspnea on exertion): Status: Acute Assessment and plan: Await final echo read; draft showed preserved EF. (5) Non-insulin dependent type 2 diabetes mellitus: Status: Chronic Assessment and plan: Hold oral agents. Provide SSI (6) Hypertension: Status: Chronic Assessment and plan: Continue BB. hold losartan/HCTZ given IV contrast administration (7) Ambulatory dysfunction: Status: Chronic Assessment and plan: Would benefit from PT consult on this admission. Subjective Subjective Interval history since last seen: Ms Rosales complains of having hip and back pain and being uncomfortable in bed. She reports the same ESCALANTE. Denies dizziness, chest pain, nausea. Requests a tylenol and to be repositioned. Received a unit of blood today. Exam Narrative Exam Narrative: General: Pleasant elderly female, appears uncomfortable, A&Ox3 HEENT: EOMI, dry MMM Cardiovascular: RRR, no m/r/g Lungs: CTAB Gastrointestinal: soft, nontender, nondistended Genitourinary: Has a rooney Extremities: no edema BLE's, trace pedal pulses B, no lesions Objective Last Vital Signs Temp 36.4 C L 02/11/21 13:19 Pulse 70 02/11/21 13:19 Resp 16 02/11/21 13:19 BP 113/67 02/11/21 13:19 Pulse Ox 98 02/11/21 13:19 Laboratory Results - last 24 hr 02/10/21 02/10/21 02/11/21 16:00 17:30 06:12 WBC RBC Hgb Hct MCV MCH MCHC RDW Plt Count MPV Immature Gran % Neutrophils % Lymphocytes % Monocytes % Eosinophils % Basophils % Nucleated RBC % Absolute Neutrophils Absolute Lymphocytes Absolute Monocytes Absolute Eosinophils Absolute Basophils Sodium 142 Potassium 3.6 Chloride 107 Carbon Dioxide 28.7 Anion Gap 6.3 BUN 10 D Creatinine 0.9 Estimated GFR/1.73 m2 >= 60.00 Glucose 100 D Calcium 8.2 L Magnesium 1.8 Urine Color Yellow Urine Clarity Clear Urine pH 5.5 Ur Specific [place] 1.020 Urine Protein Negative Urine Ketones Trace H Urine Blood Negative Urine Nitrite Positive H Urine Bilirubin Negative Urine Urobilinogen 0.2 Ur Leukocyte Esterase Trace H Urine RBC Negative Urine WBC 10-20 H Ur Epithelial Cells Few Urine Crystals Negative Urine Bacteria Packed Urine Mucus Negative Ur Culture Indicated? Yes Urine Glucose Negative Patient ABO/Rh A Negative Antibody Screen NEGATIVE Crossmatch See Detail 02/11/21 06:12 WBC 13.85 H D RBC 2.48 L Hgb 7.4 L Hct 23.2 L MCV 93.5 MCH 29.8 MCHC 31.9 L RDW 14.5 Plt Count 214 MPV 10.0 Immature Gran % 1.4 Neutrophils % 64.4 Lymphocytes % 23.5 Monocytes % 8.4 Eosinophils % 1.9 Basophils % 0.4 Nucleated RBC % 1 Absolute Neutrophils 8.92 H Absolute Lymphocytes 3.25 Absolute Monocytes 1.16 H Absolute Eosinophils 0.26 Absolute Basophils 0.06 Sodium Potassium Chloride Carbon Dioxide Anion Gap BUN Creatinine Estimated GFR/1.73 m2 Glucose Calcium Magnesium Urine Color Urine Clarity Urine pH Ur Specific [place] Urine Protein Urine Ketones Urine Blood Urine Nitrite Urine Bilirubin Urine Urobilinogen Ur Leukocyte Esterase Urine RBC Urine WBC Ur Epithelial Cells Urine Crystals Urine Bacteria Urine Mucus Ur Culture Indicated? Urine Glucose Patient ABO/Rh Antibody Screen Crossmatch
[2021-02-11 16:14] LABS: HCT 25.6 % (36.0-46.0); HGB 8.4 g/dL (11.2-15.7)
[2021-02-11] MEDS: cefTRIAXone 1 GM/50 ML BAG IVPB (17:21)
--- NOTE | 2021-02-11 19:09 | PDOC.CMIN ---
- If Service Date Differs Date of service: 02/11/21 Time of Service: 19:09 Care Management Initial Assess REASON FOR HOSPITALIZATION:: Postmenopausal bleeding PAST MEDICAL HISTORY/PAST SURGICAL HISTORY:: Medical History. Ambulatory dysfunction. Degenerative joint disease involving multiple joints (~08/15/17). Disorder of uterine cervix (~08/15/17). Hyperlipidemia (~08/15/17). Hypertension (~08/15/17). Non-insulin dependent type 2 diabetes mellitus. Obesity (BMI 30-39.9). Positive cardiac stress test. Precancerous changes of the cervix. UTI (urinary tract infection) (~08/15/17). Surgical History. H/O cone biopsy of cervix. History of cholecystectomy. Hx of colonoscopy. Tubal ligation status PREVIOUS FUNCTIONAL STATUS/SOCIAL/FAMILY SUPPORTS:: Lakia lives in an apartment in [place], [place] with her son, Capo. She reports that Capo is in his 50's, but has the mind of a 15 year old. She was his caregiver, until he became hers recently, as she is wheelchair bound. Capo is planning on moving to [place] at the end of the month. She is planning to be admitted at [facility], but they are currently closed to admissions. She requires assistance with ADL's, and is not able to live on her own. CURRENT FUNCTIONAL STATUS:: Lakia was sitting up in bed, appearing to be uncomfortable when CM met with her. She stated that she was supposed to have a team meeting tomorrow with her care team at her medical home, in order to discuss her next steps as [facility] is currently closed to admissions. She stated that her home health care case manager, Kenyatta Sanches from [facility] is organizing the meeting, along with her provider at [facility]. CM attempted to call both of these organizations, as well as the [facility] independent living org., and left messages with no response. Per PT, she is a max assist. Her pain control has been a big obstacle, and per report, she may require anesthesia for a full exam to determine her course of treatment. CM will continue to follow. ADVANCE DIRECTIVES:: None on file at [facility], pt not from the area. Has patient been provided with info about the portal/API?: Yes Did the patient sign up for the portal?: No CODE STATUS:: Full Code INSURANCE COVERAGE / FINANCIAL ISSUES:: [facility]/ [facility] ([facility]) CURRENT HOME/COMMUNITY SERVICES/EQUIPMENT:: Lakia has a team of care providers in her community who are assisting her with permanent placement. PRIMARY CARE PHYSICIAN:: [facility], [place], [place]. POTENTIAL DISCHARGE NEEDS:: Potential SNF placement vs SWB at medical home ( [facility]) PATIENT/FAMILY EDUCATION NEEDS:: Review discharge instructions, discussion of self care needs and goals of care. ANTICIPATED BARRIERS TO DISCHARGE:: Coordination of services within her community, which is not local. CM will continue to attempt to contact. TRANSPORTATION:: Dependent on disposition. PLAN:: Anticipate Lakia will be placed at a SNF ([facility] is her first choice) vs transferred to [facility] for SWB awaiting placement. CM will continue to attempt to make contact with her care team. She will follow up with her PCP and discharge plan of care. CM will continue to follow.
[2021-02-12] MEDS: Lactated Ringers 1,000 ML 75 ML IV (00:48)
[2021-02-12 03:20] VITALS: BP 140/62; PULSE 93; RESP 18; TEMP 36.5; O2SAT 96
[2021-02-12 07:16] LABS: Absolute Basophil Count 0.06 10^3/uL (0.0-0.2); Absolute Lymphocyte Count 2.49 10^3/uL (1.2-3.4); Absolute Monocyte Count 1.07 10^3/uL (0.1-0.8); Basophils % 0.5; Eosinophils % 2.3; HGB 8.2 g/dL (11.2-15.7); Immature Grans % 1.6; Lymphocytes % 19.4; MCH 30.6 pg (27.0-33.0); MCHC 32.8 % (32.0-36.0); MCV 93.3 fL (80-95); MPV 10.2 fL (8.0-11.0); Monocytes % 8.3; Neutrophils % 67.9; Nucleated RBC 1 %; Platelet Count 217 10^3/uL (130-400); RBC 2.68 10^6/uL (3.93-5.22); RDW 14.8 % (11.7-14.6); RDW-SD 48.9 fL; WBC 12.84 10^3/uL (4.4-10.8)
[2021-02-12 07:17] LABS: Absolute Neutrophil Count 8.72 10^3/uL (1.2-6.7)
[2021-02-12 07:38] LABS: Anion Gap 5.9 mmol/L (3-11); BUN 8 mg/dL (7-18); CO2 27.1 mmol/L (21.0-32.0); CREATININE 0.8 mg/dL (0.55-1.02); Calcium 8.2 mg/dL (8.5-10.1); Chloride 108 mmol/L (98-107); Glucose 152 mg/dL (74-106); Magnesium 2.1 mg/dL (1.8-2.4); Potassium 3.5 mmol/L (3.5-5.1); Sodium 141 mmol/L (136-145)
[2021-02-12 08:00] VITALS: BP 126/69; PULSE 82; RESP 18; TEMP 36.7; O2SAT 97
[2021-02-12] MEDS: Atenolol 50 MG TAB PO (08:27)
[2021-02-12] MEDS: Magnesium Chloride 64 MG TABCR PO (08:27)
[2021-02-12] MEDS: Acetaminophen 325 MG TAB PO (08:27)
[2021-02-12] MEDS: Insulin Aspart 300 UNITS/3 ML PEN SC ×2 (08:29→12:39)
--- NOTE | 2021-02-12 10:59 | PT.INTREAT ---
Date of service: 02/12/21 Time of Service: 07:55 PT Notes Visit Reasons: Postmenopausal Bleeding Inpatient Physical Therapy Treatment Note [facility] Date: 02/12/2021 PRECAUTIONS: Fall, activity as tolerated SUBJECTIVE: Lakia states that her mobility is very limited at baseline. She states that she does not have the stamina to stand for long. She is agreeable to sitting up in the chair for breakfast. OBJECTIVE: PAIN: Patient complained of R-sided hip pain, as well as pain in her fabrice area due to several open sores. BED MOBILITY/TRANSFERS Rolling L/R: [] Supine-sit: Min A with HOB at 60 degrees Sit-supine: Min A x2 of B LE's with HOB flat Sit-stand: Min A x2 with STEDY lift in a.m.; CGA in p.m. Stand-sit: CGA x2 from STEDY lift in a.m.; CGA in p.m. Bed-Chair: STEDY lift Chair-bed: CGA GAIT Assistive Device: FWW Weight bearing: Full Assist: CGA Distance: Stand-pivot from chair-commode + stand-pivot from commode-bed + 4 steps backward Deviation: Significantly forward flexed posture, slow pace, shaky THEREX: Patient was instructed in several LE strengthening exercises, completed in a standing position in STEDY lift. She demonstrates poor activity tolerance and limited LE strength. TOILETING: Patient toileted with assist. ASSESSMENT: Patient tolerated session with complaint of increased fatigue. She was able to demonstrate ability to transfer and perform bed mobility with minimal assist. She demonstrates significant deconditioning and LE weakness. PLAN: Continue with global strengthening and general conditioning for improved activity tolerance and mobility. TREATMENT CODE/TIME: Session 1: 20 minutes; 19905 ([id number]) Session 2: 18 minutes; [id number] x2 ([id number])
[2021-02-12 11:53] VITALS: BP 100/59; PULSE 69; RESP 18; TEMP 36.6; O2SAT 95
[2021-02-12] MEDS: Pantoprazole 40 MG VIAL IVP (12:40)
[2021-02-12] MEDS: Normal Saline Flush 10 ML SYR IVP (12:40)
--- NOTE | 2021-02-12 12:42 | W.PM.PROGNOT ---
Date of Service Date of service: 02/12/21 Time of Service: 12:43 Assessment and Plan Assessment and plan (1) Labial swelling: Status: Acute Assessment and plan: Ecchymosis improving - resolving in dependent areas. Skin on vulvar tissue has superficial cracking from previous swelling but is currently intact. Leave rooney in place until labial edema has improved. (2) Anemia: Status: Chronic Assessment and plan: stable. Qualifiers: Anemia type: unspecified type Qualified Code(s): D64.9 - Anemia, unspecified (3) Ambulatory dysfunction: Status: Chronic Assessment and plan: PT has assisted pt with transfer to bedside [facility]. (4) UTI (urinary tract infection): Status: Acute Assessment and plan: HD3 of Ceftriazone. Plan to leave rooney in place with possible discontinuation after she has returned home. Subjective Subjective Patient reports: tolerating a regular diet, flatus, nausea (after taking Magnesium tablet this morning) and afebrile Interval history since last seen: HD#3 admission to Welding Equipment Repairer service after bleeding of ? Welding Equipment Repairer etiology. Hospitalist consult regarding medical issues. 1. Anemia. s/p 2u PRBCs by HD#2. Stable Hct @25% this am. 2. Welding Equipment Repairer bleeding. Nl CT of abd and pelvis. Uterus with thin endometrial stripe. No adnexal masses. Vulva ecchymosis with swollen labia. Distribution of ecchymosis progressed by HD#2 to to buttocks, inner thigh in a dependent soft tissue distribution. HD#3 edema has subsided and ecchymosis improving. No increase in edema in vulva. Etiology remains undetermined. 3. UTI. UCx: EColi - gary sensitive. HD3 Ceftriaxone IV continued. 4. SOB. Nl echo: Nl EF, No valvular dysfunction, Nl appearing heart chambers. 5. Skin care. Pt assisted with turning in bed. Several sites with cracking on skin 2/2 edema from ecchymosis. Protective dressing applied to pressure sites on tuberosities and hips. Plan to leave rooney catheter in place while perineal tissue recovering from edema and ecchymosis. 6. Disposition. Care managment involved with pt. They have contacted outside agencies involved with pt to arrange continuation of home care services. Ultimate goal is for pt to move to [facility] from apartment. Doubt ability to discharge pt to home today. Most likely tomorrow. Exam Const General: cooperative, no acute distress and frail appearing Nutritional Appearance: overweight Orientation: alert, awake and oriented x3 Resp Effort & Inspection: normal respiratory effort Cardio Rate: regular rate GI Inspection: obesity Palpation: soft, firm and no masses Auscultation: normal bowel sounds Female genitals images: 1. prominent external hemorroids. No evidence of lesions. 2. 3. taut ecchymotic labia majora. Periclitoral alcocer remains swollen. Back/Spine/Pelvis Back: no CVA tenderness Back/spine/pelvis image: 1. ecchymosis 2. ecchymosis. less taut than yesterday Skin General skin exam: ecchymosis and excoriation (superficial at pressure points) Objective Last Vital Signs Temp 97.9 F 02/12/21 11:53 Pulse 69 02/12/21 11:53 Resp 18 02/12/21 11:53 BP 100/59 L 02/12/21 11:53 Pulse Ox 95 02/12/21 11:53 Laboratory Results - last 24 hr 02/10/21 02/10/21 02/11/21 16:00 17:30 16:08 WBC RBC Hgb 8.4 L Hct 25.6 L MCV MCH MCHC RDW Plt Count MPV Immature Gran % Neutrophils % Lymphocytes % Monocytes % Eosinophils % Basophils % Nucleated RBC % Absolute Neutrophils Absolute Lymphocytes Absolute Monocytes Absolute Eosinophils Absolute Basophils Sodium Potassium Chloride Carbon Dioxide Anion Gap BUN Creatinine Estimated GFR/1.73 m2 Glucose Calcium Magnesium Urine Color Yellow Urine Clarity Clear Urine pH 5.5 Ur Specific [place] 1.020 Urine Protein Negative Urine Ketones Trace H Urine Blood Negative Urine Nitrite Positive H Urine Bilirubin Negative Urine Urobilinogen 0.2 Ur Leukocyte Esterase Trace H Urine RBC Negative Urine WBC 10-20 H Ur Epithelial Cells Few Urine Crystals Negative Urine Bacteria Packed Urine Mucus Negative Ur Culture Indicated? Yes Urine Glucose Negative Crossmatch See Detail 02/12/21 02/12/21 06:25 06:25 WBC 12.84 H RBC 2.68 L Hgb 8.2 L Hct 25.0 L MCV 93.3 MCH 30.6 MCHC 32.8 RDW 14.8 H Plt Count 217 MPV 10.2 Immature Gran % 1.6 Neutrophils % 67.9 Lymphocytes % 19.4 Monocytes % 8.3 Eosinophils % 2.3 Basophils % 0.5 Nucleated RBC % 1 Absolute Neutrophils 8.72 H Absolute Lymphocytes 2.49 Absolute Monocytes 1.07 H Absolute Eosinophils 0.30 Absolute Basophils 0.06 Sodium 141 Potassium 3.5 Chloride 108 H Carbon Dioxide 27.1 Anion Gap 5.9 BUN 8 Creatinine 0.8 Estimated GFR/1.73 m2 >= 60.00 Glucose 152 H Calcium 8.2 L Magnesium 2.1 Urine Color Urine Clarity Urine pH Ur Specific [place] Urine Protein Urine Ketones Urine Blood Urine Nitrite Urine Bilirubin Urine Urobilinogen Ur Leukocyte Esterase Urine RBC Urine WBC Ur Epithelial Cells Urine Crystals Urine Bacteria Urine Mucus Ur Culture Indicated? Urine Glucose Crossmatch
[2021-02-12 15:35] VITALS: BP 143/74; PULSE 72; RESP 20; TEMP 37.2; O2SAT 96
--- NOTE | 2021-02-12 16:17 | W.PM.DS.N ---
Date of service: 02/12/21 Time of Service: 16:18 DS: Diagnosis Discharge Diagnosis (1) Labial swelling: Status: Acute (2) Anemia: Status: Chronic (3) Ambulatory dysfunction: Status: Chronic (4) UTI (urinary tract infection): Status: Acute Discharge Plan Disposition Patient Disposition: HOME Condition: Fair Discharge Details Reason For Visit: anemia, vulvar hematoma Admit Date/Time: 02/11/21 12:13 Admit Provider: Yu Gama Attending Provider: Yu Gama Primary Care Provider: Unknown,Unknown Hospital Course Hospital Course: Pt was admitted to Composite Science Teacher service after presentation to [facility] ED via ambulance for an episode of acute blood loss of unclear etiology. Pt reported that she had a gush of blood from her rectum or vagina while transferring to the comode to her recliner. No trauma, no instruments in vagina. During her hospitalization the following issues were addressed 1. Anemia. 02/10/21 H/H 6.5/19. 02/11/21 transfused 2u PRBCs 02/11/21 post transfusion 8.4/25.6. 2. Composite Science Teacher bleeding. Nl CT of abd and pelvis. Uterus with thin endometrial stripe. No adnexal masses. Vulva with ecchymosis and swollen labia. Distribution of ecchymosis progressed by HD#2 to to buttocks, inner thigh in a dependent soft tissue distribution. HD#3 edema has subsided and ecchymosis improving. No increase in edema in vulva. Etiology remains undetermined. 3. Leukocytosis. 02/10/21 WBC 21.6. Rooney inserted to gravity to acheive UCx: EColi - gary sensitive. Ceftriaxone IV x 3days. Rooney left in place out of concern that pt's skin will break down with her bladder incontinence. Will discharge to home with RX for Cefuroxime while rooney in place. 4. SOB. Nl echo: Nl EF, No valvular dysfunction, Nl appearing heart chambers. 5. Skin care. Pt assisted with turning in bed. Several sites with cracking on skin 2/2 edema from ecchymosis. Protective dressing applied to pressure sites on sacrum and hips. Plan to leave rooney catheter in place while perineal tissue recovering from edema and ecchymosis. 6. Disposition. Care managment involved with pt. They have contacted outside agencies involved with pt to arrange continuation of home care services. Ultimate goal is for pt to move to half-way from apartment. Home Meds and New Rx's Prescriptions: New cefuroxime axetil 250 mg tablet 250 mg PO BID Qty: 14 RF: 0 Continued atenolol 50 mg Tablet 50 mg DAILY RF: 0 calcium citrate-vitamin D3 [Calcium Citrate + D] 315 mg-5 mcg (200 unit) Tablet 200 tab DAILY RF: 0 cranberry extract 250 mg Tablet 1 mg PO DAILY RF: 0 diclofenac sodium 1 % Gel TOPICAL RF: 0 aspirin [Ecotrin Low Strength] 81 mg Tablet,Delayed Release (Dr/Ec) 81 mg PO DAILY RF: 0 glipizide 5 mg Tablet 5 mg PO BID RF: 0 losartan-hydrochlorothiazide [Hyzaar] 100-25 mg Tablet 1 tab DAILY RF: 0 lovastatin 20 mg Tablet 1 mg DAILY RF: 0 metformin 1,000 mg Tablet 1,000 mg BID RF: 0 nystatin [Nystop] 100,000 unit/gram Powder TOPICAL RF: 0 Slow-Mag 71.5 mg Tablet,Delayed Release (Dr/Ec) 117 mg PO BID RF: 0 cholecalciferol (vitamin D3) [Vitamin D3] 25 mcg (1,000 unit) Tablet 25 mcg PO DAILY RF: 0 Discontinued acetaminophen 500 mg Tablet 1,000 mg PO PRN PRNRF: 0 Discharge Instructions Additional Instructions: Begin your new antibiotic prescription tomorrow morning. Take twice daily during the time that you have a bladder catheter in place. The bladder catheter may be removed when your labia are no longer swollen and the skin around your perineum is not cracked. You will have your meeting with your personal care attendant and nursing support as previously scheduled. Stand Alone Forms: Nursing Discharge Form Activity:: Activity as Tolerated Equipment/Supplies:: W/C Diet:: As Tolerated Discharge Orders Discharge Orders: Discharge Order (Routine); Ordered 02/12/21 Ordered By: Maame Jimenez DS: Summary Time Spent with Patient providing and/or coordinating discharge services: Greater than 30 minutes Status at Discharge Functional status at discharge: wheelchair bound Overall status at discharge: patient is progressing back to baseline Mental Status: mental status grossly normal Speech and Movement: speech and movement normal Mood: congruent mood Affect: normal affect Exam Const General: no acute distress and frail appearing Nutritional Appearance: obese Orientation: alert, awake and oriented x3 Neck Neck: normal visual inspection Resp Effort & Inspection: normal respiratory effort Cardio Rate: regular rate Rhythm: regular rhythm GI Inspection: obesity Palpation: soft, no hepatosplenomegaly, no masses and nontender Rectal Exam - female: visual inspection normal, hemorrhoids (prominent. no edema, no thrombosis) and No tenderness External Female Exam: ecchymosis (both labia majora extending into crural folk) Bimanual Exam- Vagina & Uterus: normal palpation (nl discharge. ) Back/Spine/Pelvis Back: no CVA tenderness Skin General skin exam: ecchymosis (from vulva into perirectal space. Anus spared) Lesions: no lesions (superficial fissures of perineum secondary to edema from ecchymosis) Extrem General: normal to inspection and no pedal edema Right lower extremity: full ROM Other: Patient can bear weight but can only pivot. She does not ambulate except for 1-2 steps secondary to pain Psych Appearance: grossly normal Mental Status: mental status grossly normal Speech and Movement: speech and movement normal Mood: congruent mood Affect: normal affect Attitude: cooperative Thought Process: normal Thought Content: normal Insight: insight good Judgment: judgment good DS: Data Vitals/I&O Vitals and I&O: Vital Signs Temperature 99.0 F 02/12/21 15:35 Temperature Source Tympanic 02/12/21 15:35 Pulse 72 02/12/21 15:35 Pulse Rhythm Regular 02/12/21 10:33 Respiratory Rate 20 02/12/21 15:35 Respiratory Effort 02/12/21 10:33 Respiratory Depth Normal 02/12/21 10:33 Respiratory Pattern Normal 02/12/21 10:33 Blood Pressure 143/74 H 02/12/21 15:35 Pulse Oximetry 96 02/12/21 15:35 Oxygen Delivery Method Room Air 02/12/21 15:35 Oxygen Flow Rate 0 02/12/21 15:35 Pain Level 0 02/12/21 15:35 Intake & Output 02/11/21 02/12/21 02/12/21 23:59 11:59 23:59 Intake Total 1500 / 2533.75 1070 / 1070 Output Total 600 / 1050 1175 / 1225 50 / 1225 Balance 900 / 1483.75 -105 / -155 -50 / -155 Intake: IV 1000 / 1543.75 710 / 710 Oral 240 / 730 360 / 360 Blood Product 260 / 260 Rbc Leuko Reduced Unit 260 / 260 [id number] Output: Urine 600 / 1050 1175 / 1225 50 / 1225 Other: Urine Color Yellow Yellow Yellow Straw Urine Appearance Clear Clear Clear Data Completed and Pending Labs on day of discharge: Labs from last 24 hours 02/12/21 02/12/21 02/10/21 06:25 06:25 16:00 WBC 12.84 H RBC 2.68 L Hgb 8.2 L Hct 25.0 L MCV 93.3 MCH 30.6 MCHC 32.8 RDW 14.8 H Plt Count 217 MPV 10.2 Immature Gran % 1.6 Neutrophils % 67.9 Lymphocytes % 19.4 Monocytes % 8.3 Eosinophils % 2.3 Basophils % 0.5 Nucleated RBC % 1 Absolute Neutrophils 8.72 H Absolute Lymphocytes 2.49 Absolute Monocytes 1.07 H Absolute Eosinophils 0.30 Absolute Basophils 0.06 Sodium 141 Potassium 3.5 Chloride 108 H Carbon Dioxide 27.1 Anion Gap 5.9 BUN 8 Creatinine 0.8 Estimated GFR/1.73 m2 >= 60.00 Glucose 152 H Calcium 8.2 L Magnesium 2.1 Urine Color Yellow Urine Clarity Clear Urine pH 5.5 Ur Specific [place] 1.020 Urine Protein Negative Urine Ketones Trace H Urine Blood Negative Urine Nitrite Positive H Urine Bilirubin Negative Urine Urobilinogen 0.2 Ur Leukocyte Esterase Trace H Urine RBC Negative Urine WBC 10-20 H Ur Epithelial Cells Few Urine Crystals Negative Urine Bacteria Packed Urine Mucus Negative Ur Culture Indicated? 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 HD3 of Ceftriaxone. Surgical History (Updated 02/10/21 @ 14:22 by Maria Medrano MD) H/O cone biopsy of cervix History of cholecystectomy Hx of colonoscopy Tubal ligation status Family History (Updated 02/10/21 @ 14:23 by Maria Medrano MD) Father Heart disease Hypertension Mother Hypertension Maternal Aunt Cancer cervical cancer Social History (Updated 02/10/21 @ 14:25 by Maria Medrano MD) Smoking/Tobacco Use Status: Former Tobacco Use Smoking risk assessment performed?: Yes Alcohol Intake: former Drug use: Never Household members: children Communication Needs: Hard of Hearing Additional Social history: wheelchair bound. Lives with son who is about to move to [place]. The patient was awaiting placement at [facility], but it has closed to admissions History History 1 Para 1 Hx # Term Pregnancies 1 Multiple births Hx # Pregnancies 0 Ectopic pregnancies AB induced Hx Number of Living Children 0 AB spontaneous Past Pregnancies Del. Date GA/Weeks # Outcome Route Wgt Sex Labor Lgth Anesthesia Location Prov Complic Unknown vaginal Male Stillbirth due to toxemia - 1969
--- NOTE | 2021-02-12 16:18 | PGE_ITS ---
Date of Service Date of service: 02/12/21 Time of Service: 16:18 Subjective Subjective Interval history since last seen: Discussed case with Dr Jimenez. Recommend d/c home with rooney catheter and to complete 7-10 days of cefpodoxime for UTI. Patient is deemed stable for discharge home from the hospitalist stand point with home health in place. Objective Last Vital Signs Temp 37.2 C 02/12/21 15:35 Pulse 72 02/12/21 15:35 Resp 20 02/12/21 15:35 BP 143/74 H 02/12/21 15:35 Pulse Ox 96 02/12/21 15:35 Laboratory Results - last 24 hr 02/10/21 02/12/21 02/12/21 16:00 06:25 06:25 WBC 12.84 H RBC 2.68 L Hgb 8.2 L Hct 25.0 L MCV 93.3 MCH 30.6 MCHC 32.8 RDW 14.8 H Plt Count 217 MPV 10.2 Immature Gran % 1.6 Neutrophils % 67.9 Lymphocytes % 19.4 Monocytes % 8.3 Eosinophils % 2.3 Basophils % 0.5 Nucleated RBC % 1 Absolute Neutrophils 8.72 H Absolute Lymphocytes 2.49 Absolute Monocytes 1.07 H Absolute Eosinophils 0.30 Absolute Basophils 0.06 Sodium 141 Potassium 3.5 Chloride 108 H Carbon Dioxide 27.1 Anion Gap 5.9 BUN 8 Creatinine 0.8 Estimated GFR/1.73 m2 >= 60.00 Glucose 152 H Calcium 8.2 L Magnesium 2.1 Urine Color Yellow Urine Clarity Clear Urine pH 5.5 Ur Specific [place] 1.020 Urine Protein Negative Urine Ketones Trace H Urine Blood Negative Urine Nitrite Positive H Urine Bilirubin Negative Urine Urobilinogen 0.2 Ur Leukocyte Esterase Trace H Urine RBC Negative Urine WBC 10-20 H Ur Epithelial Cells Few Urine Crystals Negative Urine Bacteria Packed Urine Mucus Negative Ur Culture Indicated? Yes Urine Glucose Negative
--- NOTE | 2021-02-12 16:33 | CHAPLAIN ---
Lakia was in bed resting and telling me about how her son is in town ([place]) until the and helping her clear out her house, when she decided she need to come to the hospital. While we were talking, Dr. Deleon came in to let Lakia know that she would be discharged today. Lakia told me she's been trying to get into [facility], but it is closed to admissions because of staffing shortages. 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
[2021-02-12] MEDS: Ondansetron O.D.T. 4 MG TABEF PO (17:00)
--- NOTE | 2021-02-12 17:30 | PT.INDS ---
Date of service: 02/12/21 PT Notes Visit Reasons: anemia, vulvar hematoma Physical Therapy Inpatient Discharge Summary Date: 02/12/21 Dates of Service: 02/11/2021 through 02/12/2021 This is a clinical summary of care provided for the duration of dates listed above. No charge was made in the completion of this documentation. Referring Doctor: Dr. Medrano PT Orders: PT CONSULT: limited ability to ambulate Precautions: fall, standard Patient Profile/Admitting Diagnosis: Patient admitted 02/10/21 due to post-menopausal bleeding and anemia. PT consult requested for evaluation of limitations in mobility. PMHX: Medical History Ambulatory dysfunction Degenerative joint disease involving multiple joints (~08/15/17) Disorder of uterine cervix (~08/15/17) Hyperlipidemia (~08/15/17) Hypertension (~08/15/17) Non-insulin dependent type 2 diabetes mellitus Obesity (BMI 30-39.9) Positive cardiac stress test Precancerous changes of the cervix UTI (urinary tract infection) (~08/15/17) Surgical History H/O cone biopsy of cervix History of cholecystectomy Hx of colonoscopy Tubal ligation status Social History/Home Situation: Patient reports that she is home bound. She lives with her son and receives nursing services at home. Her son is her primary caregiver, and assists her with all transfers. She spends most of her time in the recliner, where she also sleeps. She has a wheelchair and a FWW, but states that her son has to put his arms around her and lift her out of the chair to transfer. She states that she planned to transition to [facility], but lost her placement at the last minute, as they could not accept any additional patients. Current Functional Limitations: reports that she has been up to the commode with assist of 2 nurses Equipment Owned/DME: wheelchair, FWW Subjective: NT. See most recent OPEN HEARTH FURNACE OPERATOR notes. Objective: General Observation: NT. See most recent OPEN HEARTH FURNACE OPERATOR notes. Mental Status: NT. See most recent OPEN HEARTH FURNACE OPERATOR notes. Pain: NT. See most recent OPEN HEAR[employer] FURNACE OPERATOR notes. ROM: Right Upper Extremity: Shoulder flexion to 80 degrees. Elbow and wrist motion grossly WFL. Left Upper Extremity: Shoulder flexion to 80 degrees. Elbow and wrist motion grossly WFL. Right Lower Extremity: Hip flexion to 60 degrees actively, limited by pain. She is resting in bed with head elevated, and I am unable to observe neutral hip extension. She actively demonstrates knee motion 0-45 degrees. Left Lower Extremity: Hip flexion to 70 degrees actively, limited by pain. She is resting in bed with head elevated, and I am unable to observe neutral hip extension. She actively demonstrates knee motion 0-60 degrees. Strength: Right Upper Extremity: Shoulder flexion 3-/5. Biceps 3+/5. Triceps 4/5. Left Upper Extremity: Shoulder flexion 3-/5. Biceps 4-/5. Triceps 4+/5. Right Lower Extremity: Hip flexion 3-/5. Quads 3-/5 (unable to perform SLR, although tolerates SAQ); hamstrings allow heel slides within limited range Left Lower Extremity: Hip flexion 3-/5. Quads 3-/5 (unable to perform SLR, although tolerates SAQ); hamstrings allow heel slides within limited range Sensation: diminished to light touch through the plantar aspect of bilat feet Bed Mobility/Transfers: Supine to sit minimal assist Sit to supine minimal assist x 2 Sit to stand STEDY lift with CGA of 2 Stand to sit STEDY lift with CGA of 2 Bed to chair STEDY lift with CGA of 2 Chair to bed STEDY lift with CGA of 2 Gait: Unable. Transfers only using stand-pivot technique. Balance: Static Sitting: unable Dynamic Sitting: unable Static Standing: unable Dynamic Standing: unable Assessment: Patient is a 80 year old female referred to physical therapy services with the diagnosis of limited ability to ambulate during acute care stay for postmenopausal bleeding and anemia. Patient presents with clinical signs and symptoms consistent with acute on chronic mobility deficits. Per patient's report, she is nonambulatory at baseline, and requires significant assistance for all transfers. She currently demonstrates the following impairment level findings: 1. Decreased lower extremity strength 2. Decreased lower extremity range of motion 3. Baseline mobility deficits 4. Poor AMPAC score (77% impairment) Impairments are contributing to the following functional limitations: 1. Unable to independently transfer 2. Unable to ambulate 3. Unable to perform bed mobility without assistance Goals: Goals X1 week 1. Supine-Sit : Mod assist of 1 NOT MET 2. Sit-Supine: Mod assist of 1 NOT MET 3. Sit-Stand : Mod assist of 1 NOT MET 4. Stand-Sit : Mod assist of 1 NOT MET 5. Bed-Chair : Mod assist of 1 NOT MET 6. Chair-Bed: Mod assist of 1 NOT MET DISCHARGE RECOMMENDATIONS: Recommend long-term care placement in a SNF. TREATMENT CODE/TIME: NC Thank you for the opportunity to participate in the care of this patient. Cindy Pack PT, DPT, CLT [facility] [place], [place]
--- NOTE | 2021-02-12 18:33 | PDOC.CMDIS ---
- If Service Date Differs Date of service: 02/12/21 Time of Service: 18:33 LACE Index Scoring Tool - Questions: Length of Stay (in days): 2 Acuity (Admit via E.D.?): No Comorbidities: Diabetes w/o Complication E.D. Visits: 0 - Answers: Total Score: 3 Risk of Readmission: Low Risk Care Management Discharge Reason for Hospitalization: Postmenopausal bleeding Discharge Plan: Lakia will return home today with new orders for HH RN for rooney care. [facility] Lakia called her sister in law, Yuli, to meet her at home when she arrives. She will be transported via [facility], coordinated by [facility]. CM called her community service manager, Kenyatta Thapa ([phone]) to inform her of Lakia's discharge. Lakia has a care team meeting tomorrow at 12:30 at her home to discuss her future placement. CM sent referrals to [facility] as well as [facility]. CM relayed this information to her community service manager. Patient/Family Education Needs: Review discharge instructions regarding activity levels, medications, discussion of self care needs including ask me three and goals of care. Services Needed at Discharge: Home Health Care Services (new HH RN, [facility]), Transportation ([facility])
== END 2021-02-12 19:58 | disposition home or self-care (01) | DRG 760 ==
PROVIDERS: Internal Medicine; Admitting Provider Obstetrics & Gynecology; Visit Provider Obstetrics & Gynecology
DX: N95.0 Postmenopausal bleeding (principal); D62 Acute posthemorrhagic anemia; N39.0 Urinary tract infection, site not specified; M15.9 Polyosteoarthritis, unspecified; E78.5 Hyperlipidemia, unspecified; I10 Essential (primary) hypertension; E11.9 Type 2 diabetes mellitus without complications; E66.9 Obesity, unspecified; D72.829 Elevated white blood cell count, unspecified; R06.00 Dyspnea, unspecified; R26.9 Unspecified abnormalities of gait and mobility; K64.4 Residual hemorrhoidal skin tags; N90.89 Other specified noninflammatory disorders of vulva and perineum; B96.20 Unspecified Escherichia coli [E. coli] as the cause of diseases classified elsewhere; R06.02 Shortness of breath; Z20.822 Contact with and (suspected) exposure to COVID-19; Z68.37 Body mass index [BMI] 37.0-37.9, adult; Z87.891 Personal history of nicotine dependence; Z99.3 Dependence on wheelchair; Z79.84 Long term (current) use of oral hypoglycemic drugs
CPT/HCPCS: 36415; 36430; 80048; 80076; 84145; 86850; 86900; 86901; 86920; 87077; 87635; 88142; 97162; 97530; 71046; 74177; 76830; 81003; 81015; 82607; 82728; 82746; 83036; 83540; 83550; 83735; 83880; 84484; 85014; 85018; 85025; 87086; 87186; 93005; 93010; 93306; 99214; 99232; G0378; J0696; J1756; J2405; J3480; J3490; P9016